=== PATIENT | female | born 2000 | race Two or more races ===

== ENCOUNTER 2025-01-08 22:09 | Emergency (ER) | payer OTHER ==
[~2025-01-08] VITALS: Ht 157.5 cm; Wt 63.5 kg
[2025-01-08] MEDS ORDERED: KETOROLAC TROMETHAMINE 30 MG VIAL IM STA (22:22)
[2025-01-08] MEDS ORDERED: TRAMADOL HCL 50 MG TABLET PO STA (22:22)
[2025-01-08] MEDS ORDERED: KETOROLAC TROMETHAMINE 30 MG VIAL ONE (22:44)
== END 2025-01-09 00:57 | disposition home or self-care (01) ==
LOC: ER 22:09
DX: S82.491A Other fracture of shaft of right fibula, initial encounter for closed fracture (principal); X50.1XXA Overexertion from prolonged static or awkward postures, initial encounter; Y93.89 Activity, other specified; Y92.89 Other specified places as the place of occurrence of the external cause